=== PATIENT | female | born 1980 | race Caucasian/White ===

== ENCOUNTER 2019-07-22 15:28 | Emergency (ER) | payer OTHER ==
[~2019-07-22] VITALS: Ht 160 cm; Wt 68.2 kg
[2019-07-22 15:42] VITALS: BP 135/81
[2019-07-22] MEDS ORDERED: proCHLORperazine 10 MG/2 ml inj IM ONE (17:15)
[2019-07-22] MEDS ORDERED: ketorolac tromethamine 15mg/ml inj. IM ONE (17:15)
[2019-07-22] MEDS ORDERED: diphenhydrAMINE 50 mg/ml inj IM ONE (17:15)
--- NOTE | 2019-07-22 17:30 | NUR ---
Spoke to pharmacy regarding combining medication for IM injection. Per pharmacy Compazine and benadryl may be combined for IM injection.
== END 2019-07-22 18:25 | disposition home or self-care (01) ==
LOC: ER 15:28
DX: G43.909 Migraine, unspecified, not intractable, without status migrainosus (principal)
CPT/HCPCS: 96372; 99284; J0780; J1200; J1885

== ENCOUNTER 2019-08-07 12:44 | Emergency (ER) | payer OTHER ==
[~2019-08-07] VITALS: Ht 160 cm; Wt 68.3 kg
[2019-08-07] MEDS ORDERED: proCHLORperazine 10 MG/2 ml inj IV ONE (13:15)
[2019-08-07] MEDS ORDERED: ketorolac trometh. 30mg/ml inj. IV ONE (13:15)
[2019-08-07] MEDS ORDERED: diphenhydrAMINE 50 mg/ml inj IV ONE (13:15)
--- NOTE | 2019-08-07 13:48 | NUR ---
pt out to [place] via [facility] with construction [employer]
--- NOTE | 2019-08-07 13:59 | NUR ---
pt returns from [place]
[2019-08-07] MEDS ORDERED: PROC-8 PO (14:22)
[2019-08-07 14:59] VITALS: BP 122/78
== END 2019-08-07 15:26 | disposition home or self-care (01) ==
LOC: ER 12:45
DX: G43.909 Migraine, unspecified, not intractable, without status migrainosus (principal)
CPT/HCPCS: 70450; 96374; 96375; 99284; J0780; J1200; J1885